=== PATIENT | female | born 1940 | race Caucasian/White ===

== ENCOUNTER 2025-01-06 06:01 | Inpatient (IN) | payer OTHER ==
[~2025-01-06] VITALS: Ht 152.4 cm; Wt 72.6 kg
[2025-01-06] VITALS (10 sets, daily range): BP systolic 108–136; BP diastolic 64–73; PULSE 62–71; RESP 19–24; TEMP 36.4–36.7; O2SAT 98–100
[2025-01-06 06:43] LABS: BASOPHILS % 0.8 % (0.0-2.0); EOSINOPHILS % 0.4 % (0.0-5.0); HEMATOCRIT. 36.2 % (36.0-48.0); HEMOGLOBIN. 11.8 g/dL (12.0-16.0); LYMPHOCYTES % 14.4 % (20.0-50.0); MEAN PLATELET VOLUME 8.8 fl (7.4-10.4); MONOCYTES % 5.9 % (2.0-8.0); NEUTROPHILS % 78.5 % (40.0-76.0); PLATELET 291 x1000/uL (130-400); RED BLOOD CELL COUNT 3.78 mill/uL (4.2-5.4); RED CELL DISTRIBUTION WIDTH 15.8 % (11.6-14.6)
[2025-01-06 06:57] LABS: CREATININE 1.5 mg/dL (0.6-1.0); UREA NITROGEN BLOOD 31 mg/dL (9-23)
[2025-01-06 06:59] LABS: ASPARTATE AMINOTRANSFERASE 391 IU/L (<34); BILIRUBIN DIRECT 0.8 mg/dL (<=3.0); BILIRUBIN TOTAL 1.5 mg/dL (0.1-1.0)
[2025-01-06 07:00] LABS: PROTEIN TOTAL 7.4 g/dL (6.0-8.3)
[2025-01-06 07:30] LABS: TROPONIN I HIGH SENSITIVITY 49 ng/L (3.0-34)
[2025-01-06 09:08] LABS: TROPONIN I HIGH SENSITIVITY 73 ng/L (3.0-34)
[2025-01-06] MEDS ORDERED: NALOXONE HCL 0.4MG/ML VIAL IV PRN (15:30)
[2025-01-06] MEDS ORDERED: HYDROCODONE/ACETAMINOPHEN 5/325MG TABLET PO PRN (15:30)
[2025-01-06] MEDS ORDERED: IPRATROPIUM/ALBUTEROL 0.5-3(2.5)MG/3ML NEB HHN PRN (15:30)
[2025-01-06] MEDS ORDERED: ONDANSETRON HCL 4MG/2ML INJ IV PRN (15:30)
[2025-01-06] MEDS ORDERED: PIPERACILLIN/TAZOBACTAM 3.375 G in DEXTROSE 5% WATER 50 ML IV SCH (15:30)
[2025-01-06] MEDS ORDERED: ACETAMINOPHEN 325MG TABLET PO PRN (15:30)
[2025-01-06] MEDS: METHYLPREDNISOLONE SOD SUCC 40MG/ML (ACT-O-VIAL) IV SCH (16:26)
[2025-01-06] MEDS: PIPERACILLIN/TAZO 3.375G/50ML IV SCH (16:27)
[2025-01-06] MEDS: ENOXAPARIN 30MG/0.3ML SYR SUBCUT SCH (16:27)
[2025-01-06] MEDS ORDERED: ATOR20TA65 MT (20:30)
[2025-01-06] MEDS ORDERED: ONDA-239 PO (20:30)
[2025-01-06] MEDS ORDERED: NINT150C PO (20:30)
[2025-01-06] MEDS ORDERED: AMLO5TAB88 MT (20:30)
[2025-01-06] MEDS ORDERED: POTA-202 MT (20:30)
[2025-01-06] MEDS ORDERED: ALBU05 NEB (20:30)
[2025-01-06] MEDS ORDERED: OMEP40CA20 MT (20:30)
[2025-01-06] MEDS ORDERED: FURO20TA4 MT (20:30)
[2025-01-07] VITALS (16 sets, daily range): BP systolic 108–138; BP diastolic 55–107; PULSE 60–69; RESP 16–25; TEMP 35.8–36.7; O2SAT 97–100
[2025-01-07 00:44] LABS: TROPONIN I HIGH SENSITIVITY 55 ng/L (3.0-34)
[2025-01-07 00:47] LABS: CREATINE KINASE MB FRACTION 1.4 ng/mL (0.5-3.6)
[2025-01-07 07:11] LABS: BASOPHILS % 0.2 % (0.0-2.0); EOSINOPHILS % 0.1 % (0.0-5.0); HEMATOCRIT. 34.4 % (36.0-48.0); HEMOGLOBIN. 11.2 g/dL (12.0-16.0); LYMPHOCYTES % 11.1 % (20.0-50.0); MEAN PLATELET VOLUME 8.9 fl (7.4-10.4); MONOCYTES % 1.2 % (2.0-8.0); NEUTROPHILS % 87.4 % (40.0-76.0); PLATELET 273 x1000/uL (130-400); RED BLOOD CELL COUNT 3.61 mill/uL (4.2-5.4); RED CELL DISTRIBUTION WIDTH 15.3 % (11.6-14.6)
[2025-01-07 07:31] LABS: CREATINE KINASE MB FRACTION 1.3 ng/mL (0.5-3.6)
[2025-01-07 07:35] LABS: T4 FREE 1.34 ng/dL (0.89-1.76); TROPONIN I HIGH SENSITIVITY 36 ng/L (3.0-34)
[2025-01-07 07:38] LABS: CREATININE 1.1 mg/dL (0.6-1.0)
[2025-01-07 07:39] LABS: LDL CHOLESTEROL 59.0 mg/dL (5-100); TRIGLYCERIDE 63.0 mg/dL (0-150); UREA NITROGEN BLOOD 22.0 mg/dL (9-23)
[2025-01-07] MEDS ORDERED: NINTEDANIB ESYLATE 150 MG PO SCH (13:45)
[2025-01-07] MEDS ORDERED: ALBUTEROL (0.083%) 2.5MG/3ML NEB HHN SCH (14:00)
[2025-01-07] MEDS: FUROSEMIDE 20MG TABLET PO SCH (14:33)
[2025-01-07] MEDS: AMLODIPINE 5MG TABLET PO SCH (14:33)
[2025-01-07] MEDS ORDERED: P20 MT (17:08)
[2025-01-07] MEDS ORDERED: METHYLPREDNISOLONE SOD SUCC 40MG/ML (ACT-O-VIAL) IV SCH (18:00)
[2025-01-07] MEDS ORDERED: ATORVASTATIN CALCIUM 20MG TABLET PO SCH (21:00)
[2025-01-08] MEDS ORDERED: POTASSIUM CHLORIDE 10MEQ TABLET SR PO SCH (09:00)
== END 2025-01-07 17:45 | disposition home or self-care (01) | DRG 196 ==
LOC: ER 06:01 → 5EST 07:44 → EDBEDREQSVC 07:55 → EDBEDREQ 07:55 → EDBEDREQTM 07:55 → ENRESERV 12:47
PROVIDERS: ADMIT Internal Medicine; ATTEND Internal Medicine
PROC: 5A0935A Assistance with Respiratory Ventilation, Less than 24 Consecutive Hours, High Flow/Velocity Cannula (ICD-10-PCS; principal; 2025-01-06)
DX: J84.10 Pulmonary fibrosis, unspecified (principal); J96.91 Respiratory failure, unspecified with hypoxia; I27.21 Secondary pulmonary arterial hypertension; I10 Essential (primary) hypertension; F41.9 Anxiety disorder, unspecified; I25.10 Atherosclerotic heart disease of native coronary artery without angina pectoris; Z79.899 Other long term (current) drug therapy
CPT/HCPCS: 36415; 71045; 71275; 76705; 80048; 80061; 80076; 82550; 82553; 84439; 84443; 84484; 85025; 93005; 94070; 99291; J1650; J2543; J2919